=== PATIENT | female | born 1995 | race Caucasian/White ===

== ENCOUNTER 2018-07-25 14:58 | Inpatient (IN) ==
[2018-07-25] MEDS ORDERED: SODIUM CHLORIDE 0.9% 1000ML 1,000 ML IV SCH (15:30)
[2018-07-25 15:49] LABS: Basophils # (auto) 0.02 K/uL (0-0.2); Basophils % (auto) 0.2 %; Eosinophils # (auto) 0.08 K/uL (0-0.5); Eosinophils % (auto) 0.9 %; Hematocrit (blood only) 39.6 % (37-47); Hemoglobin 13.3 g/dL (12.0-16.0); Immature Granulocytes # (auto) 0.01 K/uL (0.00-0.02); Immature Granulocytes % (auto) 0.1 %; Lymphocytes # (auto) 2.14 K/uL (1.2-3.4); Mean Corpuscular Hgb Conc 33.6 g/dL (32-36); Mean Corpuscular Volume 85.7 fL (80-100); Mean Platelet Volume 11.5 fL (7.4-10.4); Monocytes # (auto) 0.92 K/uL (0.11-0.59); Monocytes % (auto) 10.3 %; Neutrophils # (auto) 5.73 K/uL (1.4-6.5); Neutrophils % (auto) 64.5 %; Platelet Count 224 K/uL (130-400); RDW Coefficient of Variation 16.4 % (11.5-14.5); RDW Standard Deviation 51.6 fL (36.4-46.3); Red Blood Count 4.62 M/uL (4.2-5.4)
[2018-07-25 16:06] LABS: Albumin Level 3.3 gm/dl (3.4-5.0); BUN Creatinine Ratio 12.3 (10-20); Calcium 8.9 mg/dl (8.5-10.1); Creatinine Clr Calc Pharmacy 121.5 ml/min; Est GFR (African American) 116.1; Est GFR (Non-African American) 100.2; Potassium 3.5 mmol/L (3.5-5.1)
[2018-07-25 16:09] LABS: Albumin Globulin Ratio 0.9 (0.9-2); Bilirubin,Total 0.3 mg/dl (0.2-1); Globulin 3.5 gm/dl (2.5-4.0); Total Protein 6.8 gm/dl (6.4-8.2)
--- NOTE | 2018-07-25 17:15 | CT Scan Report ---
CT SCAN OF THE BRAIN WITHOUT IV CONTRAST CLINICAL HISTORY: Fatigue. Seizure. COMPARISON STUDY: No priors. TECHNIQUE: Unenhanced axial CT scan of the brain is performed from the vertex to the skull base. A d ose lowering technique was utilized adhering to the principles of ALARA. CT DOSE: 537.48 mGy.cm FINDINGS: Brain parenchyma: There is a 13 mm round focus of encephalomalacia identified in the left superior ce rebellum on image #11, likely related to a remote insult. The brain parenchyma is otherwise normal in appearance. There is no hemorrhage, mass effect, or evidence of acute territorial ischemia by CT cri teria. Frazier-white matter differentiation is preserved. No extra-axial fluid collection is seen. Ventricles, sulci, cisterns: Normal in configuration. Intracranial vasculature: The visualized intracranial vasculature at the skull base is normal in appe arance. Calvarium: Unremarkable. Sinuses and mastoids: There is a 2.2 cm retention cyst in the left maxillary antrum. The remaining vi sualized paranasal sinuses are clear. The mastoid air cells are well pneumatized. Orbits: The bony orbits are grossly intact. IMPRESSION: 1. There is no acute intracranial abnormality. 2. There is a 1.3 cm round focus of encephalomalacia in the left cerebellum, likely related to a marilu te insult. Electronically signed by: Ruslan Nance M.D. 07/25/2018 5:14 PM
--- NOTE | 2018-07-25 19:04 | History & Physical Report ---
Date of Service July 25, 2018 Assessment & Plan (1) Seizure disorder: Multiple absence type seizures today. Valproic acid level is slightly supratherapeutic. ED physician has contacted [facility] neurology who is taking call. She will remain on Depakote for now. EEG ordered. Seizure precautions. Present on Admission?: Yes (2) Depression: Continue current medical management (3) DVT prophylaxis: Early ambulation History of Present Illness Chief Complaint: Recurrent absence seizure's Primary Care Provider: Laurel Bravo 23-year-old female being treated at the [facility] for the past several weeks. She has a history of seizure disorder and takes Depakote. Apparently she had several absents type seizures today accompanied by lethargy. She was sent to the ED for evaluation. Her valproic acid level is actually on the high side of normal. Head CT scan reveals a 1.3 cm e ncephalomalacia area in the left cerebellum that appears to be old. She will be admitted for further evaluation and treatment. Neurology will be consulted and EEG ordered. She will be given Ativan intravenously as needed to control any tonic clonic type seizure activity. She is stable at the time of my examination and feeling better. Although she remains somewhat lethargic, she is easily arou sable and conversant and oriented x3. Allergies Allergy/AdvReac Type Severity Reaction Status Date / Time bee venom protein (honey bee) Allergy Severe Difficulty Verified 07/25/18 15:56 Breathing PER PT blueberry Allergy Severe Difficulty Verified 07/25/18 15:56 Breathing PER PT codeine Allergy Severe Difficulty Verified 07/25/18 15:56 Breathing PER PT latex Allergy Severe Difficulty Verified 07/25/18 15:56 Breathing PER PT morphine Allergy Severe Difficulty Verified 07/25/18 15:56 Breathing PER PT sulfamethoxazole Allergy Severe Difficulty Verified 07/25/18 15:56 [From Bactrim] BreathinPER PT trimethoprim [From Bactrim] Allergy Severe Difficulty Verified 07/25/18 15:56 BreathinPER PT Bleach (Sodium Hypochlorite) Allergy Unknown NO Verified 07/25/18 15:56 REACTION ON BRAVO LIST Home Medications Home Medications Medication Instructions Recorded Confirmed Type Mylanta 30 ml PO QID PRN 07/25/18 07/25/18 History aripiprazole [Abilify] 20 mg PO HS 07/25/18 07/25/18 History kwmonxp-[id number]-niovdmsg 2 tab PO Q6H PRN 07/25/18 07/25/18 History [Excedrin Extra Strength] clonidine HCl 0.05 mg PO BID17 07/25/18 07/25/18 History divalproex 500 mg PO BID 07/25/18 07/25/18 History fluoxetine 30 mg PO QAM 07/25/18 07/25/18 History hydroxyzine HCl 50 mg PO QID PRN 07/25/18 07/25/18 History lorazepam [Ativan] 2 mg PO TID 07/25/18 07/25/18 History magnesium hydroxide [Milk of 30 ml PO DAILY PRN 07/25/18 07/25/18 History Magnesia] nicotine 1 patch TRANSDERMAL DAILY 07/25/18 07/25/18 History trazodone 100 mg PO HS 07/25/18 07/25/18 History Past Med/Surg History Medical History DVT prophylaxis Depression (Chronic) Seizure disorder (Chronic) Social History Preferred Language: Arabic Feels Safe at Home: Yes Smoking Status: Never smoker Review of Systems Review of Systems: All systems reviewed & are unremarkable except as noted in HPI & below Neurologic: + generalized weakness Lethargy Physical Exam Constitutional: + morbidly obese; no acute distress and not in distress Lethargic but easily arousable, conversant, oriented Eyes: PERRL, conjunctivae normal, anicteric sclerae ENMT: external ear and nose normal, oropharynx normal Neck: trachea midline, no thyromegaly Respiratory: normal respiratory effort, lungs clear to auscultation Cardiovascular: RRR, no murmur, no edema Gastrointestinal (Abdomen): normal bowel sounds, soft, nontender, no hepatosplenomegaly Musculoskeletal: no cyanosis or clubbing, extremities motor strength 5/5 Skin: no rashes, warm and dry Neurologic: CN's II-XI intact bilaterally and moves all extremities; no focal motor deficits Results & Data Vital Signs (Past 12 Hours) Vital Signs Temp Pulse Resp BP Pulse Ox 07/25/18 18:31 56 L 19 100 07/25/18 18:30 56 L 18 151/70 H 100 07/25/18 18:20 72 18 07/25/18 18:16 55 L 20 98 07/25/18 18:10 68 15 99 07/25/18 18:01 53 L 14 110/73 100 07/25/18 18:00 67 18 99 07/25/18 17:50 56 L 17 100 07/25/18 17:46 54 L 20 143/64 H 98 07/25/18 17:40 54 L 19 100 07/25/18 17:30 58 L 19 100 07/25/18 17:20 56 L 19 100 07/25/18 17:16 64 17 113/78 98 07/25/18 17:14 47 L 22 112/67 100 07/25/18 17:13 56 L 20 100 07/25/18 16:40 81 20 07/25/18 16:30 72 17 97 07/25/18 16:20 60 14 100 07/25/18 16:10 77 21 100 07/25/18 16:00 61 13 07/25/18 15:50 65 17 07/25/18 15:45 57 L 15 128/70 07/25/18 15:40 64 17 07/25/18 15:30 74 17 100 07/25/18 15:23 37.0 C 65 20 111/79 100 07/25/18 15:20 73 11 L 07/25/18 15:18 89 19 07/25/18 15:03 76 22 111/79 Laboratory Results 07/25/18 15:40 07/25/18 15:40
--- NOTE | 2018-07-25 19:42 | Emergency Department Note ---
Entered by Erin Hernandez acting as a scribe for History of Present Illness General Chief complaint: Seizure Stated complaint: SEIZURES Source: patient History of Present Illness Onset (ago): day(s) (today) Location: head Pain Consistency: + intermittent Maximum Pain Intensity: 9 Quality: + other (seizures) Associated symptoms: + denies other symptoms (SI, HI, changes in vision, neck pain) and + other (rib pain, being tired); no chest pain, no headaches and no shortness of breath The patient is a 23 year old female who presents to the ED with complaints of intermittent seizures occurring today. The patient states that she has a history of seizures since she was 11 and has been having multiple seizures in a day. She note that she is supposed to follow up with her neurologist, but hasn�t since moving from [place], [place]. The patient states that today she had 3 of them. She notes that she is currently at the [facility] to get her depression and anxiety medications straightened out. She notes that she was having thoughts of hurting herself and others, but no longer does now that she has been there for 3 weeks. The patient complains of rib pain and being tired. The patient denies missing her medications, headache, changes in vision, neck pain, chest pain, and shortness of breath. Home Medications Home Medications Medication Instructions Recorded Confirmed Type Mylanta 30 ml PO QID PRN 07/25/18 07/25/18 History aripiprazole [Abilify] 20 mg PO HS 07/25/18 07/25/18 History aiclzee-yrbjupaaeptuk-zqxkgeqz 2 tab PO Q6H PRN 07/25/18 07/25/18 History [Excedrin Extra Strength] clonidine HCl 0.05 mg PO BID17 07/25/18 07/25/18 History divalproex 500 mg PO BID 07/25/18 07/25/18 History fluoxetine 30 mg PO QAM 07/25/18 07/25/18 History hydroxyzine HCl 50 mg PO QID PRN 07/25/18 07/25/18 History lorazepam [Ativan] 2 mg PO TID 07/25/18 07/25/18 History magnesium hydroxide [Milk of 30 ml PO DAILY PRN 07/25/18 07/25/18 History Magnesia] nicotine 1 patch TRANSDERMAL DAILY 07/25/18 07/25/18 History trazodone 100 mg PO HS 07/25/18 07/25/18 History Allergies Allergy/AdvReac Type Severity Reaction Status Date / Time bee venom protein (honey bee) Allergy Severe Difficulty Verified 07/25/18 15:56 Breathing PER PT blueberry Allergy Severe Difficulty Verified 07/25/18 15:56 Breathing PER PT codeine Allergy Severe Difficulty Verified 07/25/18 15:56 Breathing PER PT latex Allergy Severe Difficulty Verified 07/25/18 15:56 Breathing PER PT morphine Allergy Severe Difficulty Verified 07/25/18 15:56 Breathing PER PT sulfamethoxazole Allergy Severe Difficulty Verified 07/25/18 15:56 [From Bactrim] BreathinPER PT trimethoprim [From Bactrim] Allergy Severe Difficulty Verified 07/25/18 15:56 BreathinPER PT Bleach (Sodium Hypochlorite) Allergy Unknown NO Verified 07/25/18 15:56 REACTION ON [facility] LIST Past Med/Surg History Medical History DVT prophylaxis Depression (Chronic) Seizure disorder (Chronic) Family History Other No significant family history Social History Preferred Language: Georgian marital status: Single Current Living Situation: Alone current occupational status: unemployed Feels Safe at Home: Yes Smoking Status: Never smoker Review of Systems See HPI for pertinent positives & negatives. and A total of 10 systems reviewed and were otherwise negative Physical Exam Vital Signs Vital Signs - 24 hr 07/25/18 15:03 07/25/18 15:18 07/25/18 15:20 Temperature Temperature Source Sepsis Recent Fever Within 48 Hours Sepsis New/Unexplained Change in Mental Status Sepsis Action Taken by Nursing Pulse Rate 76 89 73 Pulse Rate from SpO2 Sensor Pulse Rhythm Pulse Strength Respiratory Rate 22 19 11 L Respiratory Effort / Characteristics Respiratory Depth Respiratory Pattern Blood Pressure 111/79 Blood Pressure Mean 89 Blood Pressure Position Pulse Oximetry Oxygen Delivery Method 07/25/18 15:23 07/25/18 15:30 07/25/18 15:40 Temperature 37.0 C Temperature Source Oral Sepsis Recent Fever Within 48 Hours No Sepsis New/Unexplained Change in Mental Status No Sepsis Action Taken by Nursing No Action Required Pulse Rate 65 74 64 Pulse Rate from SpO2 Sensor 75 Pulse Rhythm Regular Pulse Strength Normal Respiratory Rate 20 17 17 Respiratory Effort / Characteristics Non-Labored Spontaneous Respiratory Depth Normal Respiratory Pattern Regular Blood Pressure 111/79 Blood Pressure Mean 89 Blood Pressure Position Sitting Pulse Oximetry 100 100 Oxygen Delivery Method Room Air 07/25/18 15:45 07/25/18 15:50 07/25/18 16:00 Temperature Temperature Source Sepsis Recent Fever Within 48 Hours Sepsis New/Unexplained Change in Mental Status Sepsis Action Taken by Nursing Pulse Rate 57 L 65 61 Pulse Rate from SpO2 Sensor Pulse Rhythm Pulse Strength Respiratory Rate 15 17 13 Respiratory Effort / Characteristics Respiratory Depth Respiratory Pattern Blood Pressure 128/70 Blood Pressure Mean 89 Blood Pressure Position Pulse Oximetry Oxygen Delivery Method 07/25/18 16:10 07/25/18 16:20 07/25/18 16:30 Temperature Temperature Source Sepsis Recent Fever Within 48 Hours Sepsis New/Unexplained Change in Mental Status Sepsis Action Taken by Nursing Pulse Rate 77 60 72 Pulse Rate from SpO2 Sensor 79 61 77 Pulse Rhythm Pulse Strength Respiratory Rate 21 14 17 Respiratory Effort / Characteristics Respiratory Depth Respiratory Pattern Blood Pressure Blood Pressure Mean Blood Pressure Position Pulse Oximetry 100 100 97 Oxygen Delivery Method 07/25/18 16:40 07/25/18 17:13 07/25/18 17:14 Temperature Temperature Source Sepsis Recent Fever Within 48 Hours Sepsis New/Unexplained Change in Mental Status Sepsis Action Taken by Nursing Pulse Rate 81 56 L 47 L Pulse Rate from SpO2 Sensor 63 63 49 L Pulse Rhythm Pulse Strength Respiratory Rate 20 20 22 Respiratory Effort / Characteristics Respiratory Depth Respiratory Pattern Blood Pressure 112/67 Blood Pressure Mean 82 Blood Pressure Position Pulse Oximetry 100 100 Oxygen Delivery Method 07/25/18 17:16 07/25/18 17:20 07/25/18 17:30 Temperature Temperature Source Sepsis Recent Fever Within 48 Hours Sepsis New/Unexplained Change in Mental Status Sepsis Action Taken by Nursing Pulse Rate 64 56 L 58 L Pulse Rate from SpO2 Sensor 67 57 L 59 L Pulse Rhythm Pulse Strength Respiratory Rate 17 19 19 Respiratory Effort / Characteristics Respiratory Depth Respiratory Pattern Blood Pressure 113/78 Blood Pressure Mean 89 Blood Pressure Position Pulse Oximetry 98 100 100 Oxygen Delivery Method 07/25/18 17:40 07/25/18 17:46 07/25/18 17:50 Temperature Temperature Source Sepsis Recent Fever Within 48 Hours Sepsis New/Unexplained Change in Mental Status Sepsis Action Taken by Nursing Pulse Rate 54 L 54 L 56 L Pulse Rate from SpO2 Sensor 54 L 56 L 56 L Pulse Rhythm Pulse Strength Respiratory Rate 19 20 17 Respiratory Effort / Characteristics Respiratory Depth Respiratory Pattern Blood Pressure 143/64 H Blood Pressure Mean 90 Blood Pressure Position Pulse Oximetry 100 98 100 Oxygen Delivery Method 07/25/18 18:00 07/25/18 18:01 07/25/18 18:10 Temperature Temperature Source Sepsis Recent Fever Within 48 Hours Sepsis New/Unexplained Change in Mental Status Sepsis Action Taken by Nursing Pulse Rate 67 53 L 68 Pulse Rate from SpO2 Sensor 68 54 L 71 Pulse Rhythm Pulse Strength Respiratory Rate 18 14 15 Respiratory Effort / Characteristics Respiratory Depth Respiratory Pattern Blood Pressure 110/73 Blood Pressure Mean 85 Blood Pressure Position Pulse Oximetry 99 100 99 Oxygen Delivery Method 07/25/18 18:16 07/25/18 18:20 07/25/18 18:30 Temperature Temperature Source Sepsis Recent Fever Within 48 Hours Sepsis New/Unexplained Change in Mental Status Sepsis Action Taken by Nursing Pulse Rate 55 L 72 56 L Pulse Rate from SpO2 Sensor 53 L 56 L 55 L Pulse Rhythm Pulse Strength Respiratory Rate 20 18 18 Respiratory Effort / Characteristics Respiratory Depth Respiratory Pattern Blood Pressure 151/70 H Blood Pressure Mean 79 97 Blood Pressure Position Pulse Oximetry 98 100 Oxygen Delivery Method 07/25/18 18:31 07/25/18 18:46 07/25/18 19:00 Temperature Temperature Source Sepsis Recent Fever Within 48 Hours Sepsis New/Unexplained Change in Mental Status Sepsis Action Taken by Nursing Pulse Rate 56 L 70 68 Pulse Rate from SpO2 Sensor 57 L Pulse Rhythm Pulse Strength Respiratory Rate 19 17 17 Respiratory Effort / Characteristics Respiratory Depth Respiratory Pattern Blood Pressure 118/76 Blood Pressure Mean 90 Blood Pressure Position Pulse Oximetry 100 98 Oxygen Delivery Method 07/25/18 19:01 07/25/18 19:28 Temperature Temperature Source Sepsis Recent Fever Within 48 Hours Sepsis New/Unexplained Change in Mental Status Sepsis Action Taken by Nursing Pulse Rate 68 63 Pulse Rate from SpO2 Sensor Pulse Rhythm Pulse Strength Respiratory Rate 17 18 Respiratory Effort / Characteristics Respiratory Depth Respiratory Pattern Blood Pressure 90/65 L 90/63 L Blood Pressure Mean 73 Blood Pressure Position Pulse Oximetry 99 99 Oxygen Delivery Method Room Air GENERAL: disheveled, lying in bed, slow to respond, no acute distress, nontoxic EYE EXAM: normal conjunctiva OROPHARYNX: no exudate, no erythema, lips, buccal mucosa, and tongue normal and mucous membranes are moist NECK: supple, no nuchal rigidity, no adenopathy, non-tender LUNGS: Clear to auscultation. Normal chest wall mechanics HEART: no murmurs, S1 normal and S2 normal ABDOMEN: abdomen soft, non-tender, normo-active bowel sounds, no masses, no rebound or guarding. BACK: Back is symmetrical on inspection and there is no deformity, no midline tenderness, no CVA tenderness. SKIN: no rashes and no bruising UPPER EXTREMITIES: upper extremities are grossly normal. LOWER EXTREMITIES: No pitting edema. NEURO EXAM: Normal sensorium, cranial nerves II-XII intact, normal speech, no weakness of arms, no weakness of legs. No drift. Finger to nose intact. Gross sensation intact. Course ED COURSE: Vital signs were reviewed and showed hypotension. The patients medical record was reviewed The above diagnostic studies were performed and reviewed. ED treatments and interventions as stated above. 1507: The patient was evaluated in room C2B. A complete history and physical examination was performed. 1742: I discussed the patient's case with Dr. Baker- Neurologist. He recommends brining her in and not loading her with medication. 1746: Upon reevaluation, the patient is resting comfortably. I discussed my findings with the patient and she understands and agrees with the treatment plan. Based on the patients age, coexisting illnesses, exam and lab findings the decision to treat as an inpatient was made. The patient remained stable while under my care. The patient will be evaluated for further management. 1754: I discussed the patient's case with a nurse at the [facility]. They informed me that she has a history of absent seizures and had several last night. They report that they gave her Ativan, but she had an additional 2 episodes this morning. They report that she also had a physical decline and needed help moving today so they sent her over. 1830: I discussed the patient's case with Dr. Roe [facility] Hospitalist. They will evaluate the patient for further management. Consultations Consultation #1: I discussed the patient's case with Dr. Roe [facility] Hospitalist. They will evaluate the patient for further management. Time: 18:30 Administered Medications Discontinued Medications Sodium Chloride (Nss 1000ml) 1,000 mls @ 999 mls/hr IV .Q1H1M [facility] Stop: 07/25/18 16:30 Last Infusion: 07/25/18 19:17 Dose: 0 mls/hr Documented by: [id number] Admin: 07/25/18 15:49 Dose: 999 mls/hr Documented by: [id number] Medical Decision Making Differential Diagnosis Differential diagnosis includes etiologies such as infection, hypoglycemia, electrolyte abnormalities, cardiac sources, intracerebral event, trauma, toxicologic, neurologic, as well as others were entertained. Medical Records Attestation: I reviewed the patient's medical records. Home Medications Current Medication List: was personally reviewed by me Laboratory Data Attestation: I reviewed the patient's lab results. Result diagrams: 07/25/18 15:40 07/25/18 15:40 Lab Results 07/25/18 07/25/18 07/25/18 Range/Units 15:40 15:40 15:40 WBC 8.90 (4.8-10.8) K/uL RBC 4.62 (4.2-5.4) M/uL Hgb 13.3 (12.0-16.0) g/dL Hct 39.6 (37-47) % MCV 85.7 (80-100) fL MCH 28.8 (25-34) pg MCHC 33.6 (32-36) g/dL RDW Std Deviation 51.6 H (36.4-46.3) fL RDW Coeff of Ania 16.4 H (11.5-14.5) % Plt Count 224 (130-400) K/uL MPV 11.5 H (7.4-10.4) fL Immature Gran % (Auto) 0.1 % Neut % (Auto) 64.5 % Lymph % (Auto) 24.0 % [place]affee % (Auto) 10.3 % Eos % (Auto) 0.9 % Baso % (Auto) 0.2 % Immature Gran # (Auto) 0.01 (0.00-0.02) K/uL Neut # (Auto) 5.73 (1.4-6.5) K/uL Lymph # (Auto) 2.14 (1.2-3.4) K/uL [place]affee # (Auto) 0.92 H (0.11-0.59) K/uL Eos # (Auto) 0.08 (0-0.5) K/uL Baso # (Auto) 0.02 (0-0.2) K/uL Sodium 144 (136-145) mmol/L Potassium 3.5 (3.5-5.1) mmol/L Chloride 108 H (98-107) mmol/L Carbon Dioxide 30 (21-32) mmol/L Anion Gap 6.0 (3-11) BUN 10 (7-18) mg/dl Creatinine 0.82 (0.6-1.2) mg/dl Est Cr Clr Drug Dosing 121.5 ml/min Est GFR ( Amer) 116.1 Est GFR (Non-Af Amer) 100.2 BUN/Creatinine Ratio 12.3 (10-20) Glucose 87 (70-99) mg/dl Calcium 8.9 (8.5-10.1) mg/dl Total Bilirubin 0.3 (0.2-1) mg/dl AST 19 (15-37) U/L ALT 23 (12-78) U/L Alkaline Phosphatase 52 (45-117) U/L Total Protein 6.8 (6.4-8.2) gm/dl Albumin 3.3 L (3.4-5.0) gm/dl Globulin 3.5 (2.5-4.0) gm/dl Albumin/Globulin Ratio 0.9 (0.9-2) POC Ur Test (NEG) Valproic Acid 116 H (50-100) mcg/ml 07/25/18 Range/Units Unknown WBC (4.8-10.8) K/uL RBC (4.2-5.4) M/uL Hgb (12.0-16.0) g/dL Hct (37-47) % MCV (80-100) fL MCH (25-34) pg MCHC (32-36) g/dL RDW Std Deviation (36.4-46.3) fL RDW Coeff of Ania (11.5-14.5) % Plt Count (130-400) K/uL MPV (7.4-10.4) fL Immature Gran % (Auto) % Neut % (Auto) % Lymph % (Auto) % [place] % (Auto) % Eos % (Auto) % Baso % (Auto) % Immature Gran # (Auto) (0.00-0.02) K/uL Neut # (Auto) (1.4-6.5) K/uL Lymph # (Auto) (1.2-3.4) K/uL [place] # (Auto) (0.11-0.59) K/uL Eos # (Auto) (0-0.5) K/uL Baso # (Auto) (0-0.2) K/uL Sodium (136-145) mmol/L Potassium (3.5-5.1) mmol/L Chloride (98-107) mmol/L Carbon Dioxide (21-32) mmol/L Anion Gap (3-11) BUN (7-18) mg/dl Creatinine (0.6-1.2) mg/dl Est Cr Clr Drug Dosing ml/min Est GFR ( Amer) Est GFR (Non-Af Amer) BUN/Creatinine Ratio (10-20) Glucose (70-99) mg/dl Calcium (8.5-10.1) mg/dl Total Bilirubin (0.2-1) mg/dl AST (15-37) U/L ALT (12-78) U/L Alkaline Phosphatase (45-117) U/L Total Protein (6.4-8.2) gm/dl Albumin (3.4-5.0) gm/dl Globulin (2.5-4.0) gm/dl Albumin/Globulin Ratio (0.9-2) POC Ur Test NEG (NEG) Valproic Acid (50-100) mcg/ml Imaging Data Radiologist's Impression: Radiology results as stated below per my review and the radiologist's interpretation: CT SCAN OF THE BRAIN WITHOUT IV CONTRAST CLINICAL HISTORY: Fatigue. Seizure. COMPARISON STUDY: No priors. TECHNIQUE: Unenhanced axial CT scan of the brain is performed from the vertex to the skull base. A dose lowering technique was utilized adhering to the principles of ALARA. CT DOSE: 537.48 mGy.cm FINDINGS: Brain parenchyma: There is a 13 mm round focus of encephalomalacia identified in the left superior cerebellum on image #11, likely related to a remote insult. The brain parenchyma is otherwise normal in appearance. There is no hemorrhage, mass effect, or evidence of acute territorial ischemia by CT criteria. Frazier- white matter differentiation is preserved. No extra-axial fluid collection is seen. Ventricles, sulci, cisterns: Normal in configuration. Intracranial vasculature: The visualized intracranial vasculature at the skull base is normal in appearance. Calvarium: Unremarkable. Sinuses and mastoids: There is a 2.2 cm retention cyst in the left maxillary antrum. The remaining visualized paranasal sinuses are clear. The mastoid air cells are well pneumatized. Orbits: The bony orbits are grossly intact. IMPRESSION: 1. There is no acute intracranial abnormality. 2. There is a 1.3 cm round focus of encephalomalacia in the left cerebellum, likely related to a remote insult. Electronically signed by: Ruslan Nance M.D. 07/25/2018 5:14 PM ECG Data Attestation: I personally reviewed and interpreted this ECG as follows: Indication: other (seizure) Rate (beats per minute): 60 Rhythm: sinus bradycardia Findings: + other (normal axis); no PVC Blood Pressure Blood Pressure Findings: Low blood pressure Blood Pressure Disposition: further management by hospitalist MDM Narrative Patient is a 23-year-old female who presents the ER from the [facility] for 3 seizures in the past 24 hours. Patient has a history of absent seizures. She notes she gets about 1 a week but is otherwise fairly well controlled. She does take valproic acid. Mental state that she had 3 in the past 24 hours. Labs were obtained showed no significant leukocytosis or anemia. BMP was unremarkable. LFTs bilirubin was unremarkable. was negative. Valproic acid was slightly elevated at 116. 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 Discussed with unassigned neurology as she follows with a neurologist out of [facility]. Were in agreement with observation but holding antiepileptics at this time. Discussed with the hospitalist and patient will be observed overnight. She has no other complaints at this time. She is at her baseline but very tired. Impression & Plan Recurrent seizures Discharge Plan Visit Data Chief Complaint: Seizure Stated Complaint: SEIZURES ED Provider: Evan Frazier Discharge Problem: Recurrent seizures Patient Disposition: Being Evaluated by Hospitalist Discharge Instructions Interventions: ED Discharge Assessment Last Done: 07/25/18 19:28 Forms Stand Alone Forms: My [facility] Prescriptions Prescriptions: No Action clonidine HCl 0.1 mg Tablet 0.05 mg PO BID17 RF: 0 nicotine 14 mg/24 hr Patch 24 Hour 1 patch TRANSDERMAL DAILY RF: 0 fluoxetine 10 mg Tablet 30 mg PO QAM RF: 0 hydroxyzine HCl 50 mg Tablet 50 mg PO QID PRN (Reason: Anxiety) RF: 0 divalproex 500 mg Tablet,Delayed Release (Dr/Ec) 500 mg PO BID RF: 0 magnesium hydroxide [Milk of Magnesia] 400 mg/5 mL Suspension 30 ml PO DAILY PRN (Reason: Constipation) RF: 0 trazodone 100 mg Tablet 100 mg PO HS RF: 0 lorazepam [Ativan] 2 mg Tablet 2 mg PO TID RF: 0 Excedrin Extra Strength 250-250-65 mg Tablet 2 tab PO Q6H PRN (Reason: Headache) RF: 0 aripiprazole [Abilify] 20 mg Tablet 20 mg PO HS RF: 0 Mylanta 30 ml PO QID PRN (Reason: GASTRIC DISTRESS) RF: 0 Referrals Referrals: [facility] [Primary Care Provider] - The scribe's documentation has been prepared under my direction and personally reviewed by me in its entirety. I confirm that the note above accurately reflects all work, treatment, procedures, and medical decision making performed by me.
[2018-07-25] MEDS ORDERED: ALUMINUM/MAGNESIUM SUSP 30 ML UDC PO PRN (19:46)
[2018-07-25] MEDS ORDERED: MAGNESIUM HYDROXIDE SUSP 30 ML UDC PO PRN (19:46)
[2018-07-25] MEDS ORDERED: MYLANTA PO PRN (19:46)
[2018-07-25] MEDS ORDERED: ONDANSETRON INJ 2 MG/ML 2 ML VIAL IV PRN (19:46)
[2018-07-25] MEDS: ARIPiprazole 10 MG TAB PO SCH (20:43)
[2018-07-25] MEDS: TRAZODONE HCL 100 MG TAB PO SCH (20:44)
[2018-07-25] MEDS: DIVALPROEX DELAY RELEASE 500 MG TAB PO SCH (20:44)
[2018-07-26] MEDS: FLUOXETINE HCL 10 MG CAP PO SCH (07:54)
[2018-07-26] MEDS: DIVALPROEX DELAY RELEASE 500 MG TAB PO SCH ×2 (07:55→21:55)
[2018-07-26] MEDS: cloNIDine HCl 0.1 MG TAB PO SCH ×2 (07:55→17:11)
[2018-07-26] MEDS: NICOTINE 14 MG/24 HR PATCH TD SCH (07:55)
[2018-07-26] MEDS: ACETAMINOPHEN 325 MG TAB PO PRN (08:02)
[2018-07-26 12:16] LABS: Base Excess VBG 1.4 mEq/L; Oxygen Saturation VBG 93.3 %; pH VBG 7.45 (7.36-7.41)
[2018-07-26] MEDS ORDERED: LACTULOSE SYRUP 30 GM/45 ML UDP PO STA (13:10)
--- NOTE | 2018-07-26 13:33 | Procedure Note ---
EEG Procedure Note Date of Service July 26, 2018 Start / End Times Start Time: 0830 End Time: 0900 Referring Physician Adan Kinsey MD History Known seizure disorder with 3 recent "breakthrough" seizures occurring at local psychiatric facility with high therapeutic level of [place] Medication List Home Medications Medication Instructions Recorded Confirmed Type Mylanta 30 ml PO QID PRN 07/25/18 07/25/18 History aripiprazole [Abilify] 20 mg PO HS 07/25/18 07/25/18 History racdlvi-tuvmklysqvofj-vltjcbmn 2 tab PO Q6H PRN 07/25/18 07/25/18 History [Excedrin Extra Strength] clonidine HCl 0.05 mg PO BID17 07/25/18 07/25/18 History divalproex 500 mg PO BID 07/25/18 07/25/18 History fluoxetine 30 mg PO QAM 07/25/18 07/25/18 History hydroxyzine HCl 50 mg PO QID PRN 07/25/18 07/25/18 History lorazepam [Ativan] 2 mg PO TID 07/25/18 07/25/18 History magnesium hydroxide [Milk of 30 ml PO DAILY PRN 07/25/18 07/25/18 History Magnesia] nicotine 1 patch TRANSDERMAL DAILY 07/25/18 07/25/18 History trazodone 100 mg PO HS 07/25/18 07/25/18 History Inpatient Medication List Acetaminophen (Tylenol) 650 mg PO Q4H PRN PRN Reason: Pain or Fever Stop: 08/24/18 19:45 Last Admin: 07/26/18 08:02 Dose: 650 mg Documented by: [id number] Aripiprazole (Abilify) 20 mg PO [facility] Stop: 08/24/18 20:59 Last Admin: 07/25/18 20:43 Dose: 20 mg Documented by: [id number] Clonidine HCl (Catapres) 0.05 mg PO BID17 [facility] Stop: 08/25/18 08:59 Last Admin: 07/26/18 07:55 Dose: 0.05 mg Documented by: [id number] Divalproex Sodium (Depakote Delay Release) 500 mg PO BID [facility] Stop: 08/24/18 20:59 Last Admin: 07/26/18 07:55 Dose: 500 mg Documented by: [id number] Admin: 07/25/18 20:44 Dose: 500 mg Documented by: [id number] Fluoxetine HCl (Prozac) 30 mg PO QAM [facility] Stop: 08/25/18 08:59 Last Admin: 07/26/18 07:54 Dose: 30 mg Documented by: [id number] Miscellaneous (Remove Nicoderm Patch) 1 ea N/A HS [facility] Stop: 08/24/18 20:59 Last Admin: 07/25/18 20:44 Dose: Not Given Documented by: [id number] Nicotine (Nicoderm Cq) 14 mg TD DAILY [facility] Stop: 08/25/18 08:59 Last Admin: 07/26/18 07:55 Dose: 14 mg Documented by: [id number] Trazodone HCl (Desyrel) 100 mg PO HS [facility] Stop: 08/24/18 20:59 Last Admin: 07/25/18 20:44 Dose: 100 mg Documented by: [id number] Discontinued Medications Sodium Chloride (Nss 1000ml) 1,000 mls @ 999 mls/hr IV .Q1H1M [facility] Stop: 07/25/18 16:30 Last Infusion: 07/25/18 19:17 Dose: 0 mls/hr Documented by: [id number] Admin: 07/25/18 15:49 Dose: 999 mls/hr Documented by: [id number] Description This is a 21 electrode EEG with a single channel dedicated to limited EKG. The electrodes were placed in accordance with the International 10-20 system. This EEG is done as a bedside recording and is of good technical quality allowing for some muscle movement artifacts. Photic stimulation is performed. Drowsiness and light sleep are not recorded During wakefulness there is evidence for normal background rhythm in the alpha range of up to 9 Hz maximum frequency of up to 30 �V of maximal amplitude theta activity is seen centrally and in a symmetrical fashion beta activity is seen bifrontally There is an F7 electrode artifact throughout the recording which does not interfere with interpretation Photic stimulation provokes a modest driving response No time during the waking recording is evidence for potentially epileptogenic activity in the form of polyspike and spike-wave burst, focal sharp waves or focal spikes Interpretation This is a normal EEG during wakefulness revealing no evidence for focal or generalized encephalopathy and no evidence for potentially epileptogenic activity Clinical Correlation This is a normal EEG during wakefulness and indicates no evidence for significant focal or generalized encephalopathy or presence of potentially epil eptogenic discharges. The absence of the latter does not exclude the diagnosis of a seizure disorder Clinical correlation is required Jose Guadalupe Baker MD
[2018-07-26] MEDS: NYSTATIN POWDER 15GM BTL EXT SCH ×3 (13:52→21:02)
--- NOTE | 2018-07-26 15:44 | Neurology Consultation ---
Date of Consultation July 26, 2018 Assessment & Plan (1) Recurrent seizures: 1. continue Depakote 500 mg BID which she has been taking for years 2. agree with lactulose for elevated ammonia level which is caused by the Depakote 3. she will need to establish care in [facility] with her neurologist for change to another antiseizure medication 4. 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 repeat level in the am 6. EEG with no seizure activity follow up with PCP and neurology as outpatient in [facility] Supervising Physician Co-Signing Physician Notes I have seen and discussed above patient with Dr Jose Guadalupe Baker, neurology I seen Cherise today, reviewed her history, discussed her case with Aurelia Garcia and examined her. Number is 23 has had psychiatric issues of undetermined type since childhood and a seizure disorder since adolescence we do not really have adequate records regarding the nature of her seizures but she tells me that her EEGs have "always been normal" and that the only medication she is ever taken has been Depakote. Patient epilepsy unit monitoring states that her seizure frequency is about once a month and that the events are often very brief duration partial type of affairs and that she is never had 3 events in a row like she apparently had yesterday at the [facility] Her Depakote level was elevated at 116 which is usually in light of her dose and she did have an elevated ammonia which I suspect is been a chronic issue with her but one that may never have been monitored. Currently her EEG is normal her exam is what I seem to be baseline and at this point I am unwilling to add more anticonvulsants to this woman's regimen and go to recommend that she be discharged and return to the care of her psychiatrist and neurologist in the [facility] We have restarted the Depakote as I see no urgent need to stop it without a game plan about an alternative anticonvulsant and we are certainly not cannot outline such a plan here as we are not going to provide long-term care We are suggesting another Depakote level be done just to be sure that some of her elevated levels might not of been due to iatrogenic over compliance at the [facility] and would suggest that she be discharged on lactulose and that her medical records to be transferred to her providers in the [facility] for their review I remain suspicious that some of the events yesterday were nonepileptic and remains suspicious that some of the events she is described over the years are nonepileptic but again not knowing her case is can only be conjectural If she is still in the hospital tomorrow we will make another visit but for now I would strongly suggest she be discharged back to the care of her mother and the physicians in [place] care for her with the only medication addition being the lactulose to control her hyperammonemia Jose Guadalupe Baker MD History of Present Illness Reason for Consultation: seizure exacerbation know seizure disorder Requesting Physician: Sixto Rosenbaum Attending Physician: Sixto Rosenbaum History of Present Illness Cherise is a 23 year old female being treated at the [facility] for the past several weeks. She has a history of seizure disorder and takes Depakote. She states she had several absent seizures accompanied by lethargy. Her valproic acid level is actually on the high side of normal. Head CT scan reveals a 1.3 cm encephalomalacia area in the left cerebellum that appears to be old. She is currently lethargic, she is easily arousable and conversant and oriented x3. She state she started having seizure in her teens and has never been on anything other than Depakote 500 mg BID. she is from [facility] and has a ride back home once she is cleared. She states she was outside smoking a cigarette and has several episode of staring. She is on numerous psychiatric medications and at the [facility] because of depression but states she is not suicidal. denies CP, SOB, abdominal pain, one sided weakness numbness tingling, N, V, fever chills night sweats, denies biting tongue or incontinence. Allergies Allergy/AdvReac Type Severity Reaction Status Date / Time bee venom protein (honey bee) Allergy Severe Difficulty Verified 07/25/18 15:56 Breathing PER PT blueberry Allergy Severe Difficulty Verified 07/25/18 15:56 Breathing PER PT codeine Allergy Severe Difficulty Verified 07/25/18 15:56 Breathing PER PT latex Allergy Severe Difficulty Verified 07/25/18 15:56 Breathing PER PT morphine Allergy Severe Difficulty Verified 07/25/18 15:56 Breathing PER PT sulfamethoxazole Allergy Severe Difficulty Verified 07/25/18 15:56 [From Bactrim] BreathinPER PT trimethoprim [From Bactrim] Allergy Severe Difficulty Verified 07/25/18 15:56 BreathinPER PT Bleach (Sodium Hypochlorite) Allergy Unknown NO Verified 07/25/18 15:56 REACTION ON BRAVO LIST Home Medications Home Medications Medication Instructions Recorded Confirmed Type Mylanta 30 ml PO QID PRN 07/25/18 07/25/18 History aripiprazole [Abilify] 20 mg PO HS 07/25/18 07/25/18 History abkvaab-yfdtcmgpscykw-dymsqxbh 2 tab PO Q6H PRN 07/25/18 07/25/18 History [Excedrin Extra Strength] clonidine HCl 0.05 mg PO BID17 07/25/18 07/25/18 History divalproex 500 mg PO BID 07/25/18 07/25/18 History fluoxetine 30 mg PO QAM 07/25/18 07/25/18 History hydroxyzine HCl 50 mg PO QID PRN 07/25/18 07/25/18 History lorazepam [Ativan] 2 mg PO TID 07/25/18 07/25/18 History magnesium hydroxide [Milk of 30 ml PO DAILY PRN 07/25/18 07/25/18 History Magnesia] nicotine 1 patch TRANSDERMAL DAILY 07/25/18 07/25/18 History trazodone 100 mg PO HS 07/25/18 07/25/18 History Patient History Medical History DVT prophylaxis Depression (Chronic) Seizure disorder (Chronic) Family History Other No significant family history Social History Preferred Language: Kazakh Communication Ability: Effective 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 Beliefs That Will Affect Care: None marital status: Single Current Living Situation: Family and Significant Other current occupational status: unemployed Other Information That Helps Us Care for You: No Feels Safe at Home: Yes Safety Concerns: Feels Safe At This Time Smoking Status: Current every day smoker Tobacco Type: cigarettes Cigarettes Per Day: 2-3 cigarettes/day Do You Dip or Chew Tobacco: No Second Hand Exposure: Yes Tobacco Cessation Education Requested by Patient: No Hx Alcohol Use: No Hx Substance Use: No Physical Exam Physical Exam: Physical Exam: Constitutional: appearance over nourished, healthy lethargy but awakes and interacts easily Ears, Nose, Mouth and Throat: mucous membranes moist, no injection and skin normal, eyes normal Cardiovascular: normal S-1 and S-2 and regular rate and rhythm Respiratory: clear to auscultation (CTA) and no rales, ronchi or wheeze Musculoskeletal: no peripheral edema and good distal pulses Skin: no stigmata of neurocutaneous disease noted and normal and intact Eyes: extraocular muscles intact (EOMI) and pupils equal, round and reactive to light (PERRL) NEUROLOGIC EXAMINATION: Mental status: Alert and interactive Oriented know she is in the hospital in [place] Oriented to person Speech fluent with no evidence of aphasia Cranial Nerves smile eye brow raise symmetric Reflexes: Deep tendon reflexes were symmetrical and graded 2/5. Sensory: no deficit to light or cool touch Coordination: finger to nose with no bipass, heel to abrams intact Gait/Stance: Posture lying in bed Motor: Negative for pronator drift of out stretched arms with eyes closed. Strength: biceps triceps hand soft work wrapper examiner 5/5 hip flex plantar flex ext 5/5 bilaterally Results & Data Vital Signs (Past 12 Hours) Vital Signs Temp Pulse Pulse Resp BP BP Pulse Ox 07/26/18 13:35 91/62 L 07/26/18 12:27 67 88/60 L 07/26/18 12:14 37.5 C 67 97 07/26/18 10:07 59 L 07/26/18 07:12 36.5 C 59 L 18 111/78 100 Laboratory Results Abnormal lab results 07/25/18 07/25/18 07/25/18 Range/Units 15:40 15:40 15:40 RDW Std Deviation 51.6 H (36.4-46.3) fL RDW Coeff of Ania 16.4 H (11.5-14.5) % MPV 11.5 H (7.4-10.4) fL [place] # (Auto) 0.92 H (0.11-0.59) K/uL VBG pH (7.36-7.41) VBG pCO2 (38-50) mmHg Chloride 108 H (98-107) mmol/L Ammonia (11-32) umol/L Albumin 3.3 L (3.4-5.0) gm/dl Valproic Acid 116 H (50-100) mcg/ml 07/26/18 07/26/18 Range/Units 12:00 12:00 RDW Std Deviation (36.4-46.3) fL RDW Coeff of Ania (11.5-14.5) % MPV (7.4-10.4) fL [place] # (Auto) (0.11-0.59) K/uL VBG pH 7.45 H (7.36-7.41) VBG pCO2 37 L (38-50) mmHg Chloride (98-107) mmol/L Ammonia 119.0 H (11-32) umol/L Albumin (3.4-5.0) gm/dl Valproic Acid (50-100) mcg/ml Diagnostic Findings CT head-. There is no acute intracranial abnormality. There is a 1.3 cm round focus of encephalomalacia in the left cerebellum, likely related to a remote insult. EEG -no seizure spikes
[2018-07-26] MEDS ORDERED: LACTULOSE SYRUP 10 GM/15 ML BTL 473 ML PO STA (19:37)
--- NOTE | 2018-07-26 20:27 | Hospitalist Progress Note ---
Date of Service July 26, 2018 Assessment & Plan (1) Seizure disorder: report of frequent seizures at the [facility]. no seizures since admission. EEG w/o focal seizure. 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 depakote level >100 -- I had initially held the depakote but neurology recommended resuming it. thus continue depakote. repeat level in am. will need to be changed to another anti-epileptic as outpatient due to significant hyperammonemia. this will be deferred to her outpatient neurologist in [place]. Present on Admission?: Yes (2) Hepatic encephalopathy: Elevated ammonia level likely due to depakote use. No liver disease. Lactulose 30gm x 1 given early today, then another dose of 15gm tonight. Repeat exams and repeat level AM. Present on Admission?: Yes (3) Depression: continue all prior psych meds. once medically cleared can return to the [facility]. Present on Admission?: Yes (4) Altered mental state: Initially thought 2nd to post-ictal state from seizures but hepatic encephalopathy explains most of current state. Rx w/ lactulose. Follow. TSH, VBG, etc otherwise negative. Check a tox screen - r/o illicit substances. Check u/a to ensure no UTI. 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 defer MRI to neurology if necessary. Present on Admission?: Yes (7) Candidal intertrigo: nystatin powder TID (8) DVT prophylaxis: if patient stays beyond tomorrow then start lovenox Subjective patient very sleepy during the visit. even when she opens her eyes she quickly falls back asleep. 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 she is from [facility]. cannot tell me why she is at the [facility]. staff report lethargy but no seizures. tele normal overnight. Review of Systems Review of Systems: Unobtainable due to cognitive status Physical Exam Constitutional: + obese and + altered mental status; no acute distress lethargic ENMT: external ear and nose normal, oropharynx normal Respiratory: normal respiratory effort, lungs clear to auscultation Cardiovascular: Rate/Rhythm: regular rate and regular rhythm Heart Sounds: normal S1 and normal S2; no murmur Vessels: posterior tibial pulses present and dorsalis pedis pulses present; no JVD Extremities: no edema Gastrointestinal (Abdomen): normal bowel sounds, soft, nontender, no hepatosplenomegaly Skin: severe candidal rash under breasts and on chest/abd wall (chaperoned by nurse) Neurologic: Motor/Sensory: + asterixis Psychiatric: Orientation: + not alert (lethargic) Results & Data Vital Signs (Past 12 Hours) Vital Signs Temp Pulse Pulse Resp BP BP Pulse Ox 07/26/18 19:24 36.8 C 171 H 16 94/58 L 97 07/26/18 16:26 66 07/26/18 15:43 36.5 C 60 18 111/74 97 07/26/18 13:35 91/62 L 07/26/18 12:27 67 88/60 L 07/26/18 12:14 37.5 C 67 97 07/26/18 10:07 59 L Laboratory Results Laboratory Results - last 24 hr 07/26/18 07/26/18 07/26/18 12:00 12:00 12:00 VBG pH VBG pCO2 VBG pO2 VBG HCO3 VBG O2 Saturation VBG Base Excess Barometric Pressure Ammonia 119.0 H Vitamin B12 718 TSH 2.050 07/26/18 12:00 VBG pH 7.45 H VBG pCO2 37 L VBG pO2 70 VBG HCO3 25 VBG O2 Saturation 93.3 VBG Base Excess 1.4 Barometric Pressure 732.2 Ammonia Vitamin B12 TSH (1) Depression Depression Type: unspecified Qualified Code(s): F32.9 - Major depressive disorder, single episode, unspecified (2) Altered mental state Altered mental status type: somnolence Qualified Code(s): R40.0 - Somnolence
[2018-07-26] MEDS: TRAZODONE HCL 100 MG TAB PO SCH (21:54)
[2018-07-26] MEDS: ARIPiprazole 10 MG TAB PO SCH (21:55)
[2018-07-26 22:13] LABS: Appearance Urine Cloudy (Clear); Bacteria Urine Automated Negative (Negative); Bilirubin Urine Negative (Negative); Blood Urine 3+ (Negative); Color Urine Yellow; Epithelial Cell Urine Auto >30 /lpf (0-5); Glucose Urine UA Negative (Negative); Ketones Urine 1+ (Negative); Leukocyte Esterase Urine Negative (Negative); Nitrite Urine Negative (Negative); Protein Urine Negative (Negative); Specific Gravity Urine 1.026 (1.000-1.030); Urobilinogen Urine Negative (Negative); pH Urine 7.5 (4.5-7.5)
[2018-07-26 22:32] LABS: Amphetamines+Metham, Urine Neg (Neg); Barbiturates, Urine Neg (Neg); Benzodiazepine, Urine Neg (Neg); Cocaine, Urine Neg (Neg); MDMA (Ecstacy), Urine Neg (Neg); Methadone, Urine Neg (Neg); Opiate, Urine Neg (Neg); Phencyclidine, Urine Neg (Neg)
[2018-07-26 22:33] LABS: RBC Urine Automated >30 /hpf (0-4)
[2018-07-27] MEDS: ACETAMINOPHEN 325 MG TAB PO PRN ×2 (01:07→11:48)
[2018-07-27 06:32] LABS: BUN Creatinine Ratio 19.3 (10-20); Calcium 8.2 mg/dl (8.5-10.1); Creatinine Clr Calc Pharmacy 135.4 ml/min; Est GFR (African American) 131.4; Est GFR (Non-African American) 113.4; Potassium 3.4 mmol/L (3.5-5.1)
[2018-07-27] MEDS: FLUOXETINE HCL 10 MG CAP PO SCH (07:58)
[2018-07-27] MEDS: NICOTINE 14 MG/24 HR PATCH TD SCH (07:58)
[2018-07-27] MEDS: NYSTATIN POWDER 15GM BTL EXT SCH ×3 (07:59→20:15)
[2018-07-27] MEDS: DIVALPROEX DELAY RELEASE 500 MG TAB PO SCH (07:59)
[2018-07-27] MEDS: cloNIDine HCl 0.1 MG TAB PO SCH ×2 (08:07→18:33)
[2018-07-27] MEDS ORDERED: LACTULOSE SYRUP 30 GM/45 ML UDP PO STA (09:30)
[2018-07-27] MEDS ORDERED: POTASSIUM CHLORIDE 10 MEQ TABCR PO STA (10:45)
--- NOTE | 2018-07-27 16:12 | Neurology Progress Note ---
Date of Service July 27, 2018 Assessment & Plan (1) Recurrent seizures: 1. continue Depakote 500 mg BID which she has been taking for years will decrease to 250 mg am and 500 mg pm for now 2. agree with lactulose for elevated ammonia level which is caused by the Depakote- continue 3. she will need to establish care in [facility] with her neurologist for change to another antiseizure medication 4. 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 repeat depakote level in 10 days along with ammonia level 6. EEG with no seizure activity 7. possible drug interaction with new psych medications follow up with PCP and neurology as outpatient in [facility] will sign off for now will be available for any questions concerns. Ok to discharge once medically stable Supervising Physician Co-Signing Physician Notes I have seen and discussed above patient with Dr Jose Guadalupe Baker, neurology I have seen hCerise today, reviewed her status, discussed the case with Aurelia Garcia and her attending physician Dr. Rosenbaum and have recommended the above plan which is currently in place i.e. reduce the Depakote to a total of 750 mg/day, continue the lactulose, and to repeat both Depakote and lactulose and ammonia levels in about 10 days She will be returning to the [facility] when a bed is available. Neurology is going to sign off at present but will be happy to take a look at her again should further seizure activity or other issues emerge Jose Guadalupe Baker MD Subjective Cherise is a 23 year old female being treated at the [facility] inpatient psychiatric facility for the past several weeks. She has a history of seizure disorder and takes Depakote. She states she had several absent seizures accompanied by lethargy. Her valproic acid level is actually on the high side of normal. Head CT scan reveals a 1.3 cm encephalomalacia area in the left cerebellum that appears to be old. She is currently lethargic, she is easily arousable and conversant and oriented x3. She state she started having seizure in her teens and has never been on anything other than Depakote 500 mg BID. she is from [facility] and has a ride back home once she is cleared. She states she was outside smoking a cigarette and has several episode of staring. She is on numerous psychiatric medications and at the [facility] because of depression but states she is not suicidal. She is more awake today during exam. She was started on alot of new psych medication which may be interfering with depakote level. denies CP, SOB, abdominal pain, one sided weakness numbness tingling, N, V, fever chills night sweats, denies biting tongue or incontinence Physical Exam Physical Exam: gen: alert NAD. answer questions appropriately lungs CTA CV RRR moves all ext spontaneously Results & Data Vital Signs (Past 12 Hours) Vital Signs Temp Pulse Pulse Resp BP BP Pulse Ox 07/27/18 15:23 36.6 C 88 19 108/76 91 07/27/18 12:08 36.5 C 72 22 116/72 97 07/27/18 08:06 100/71 07/27/18 07:34 68 07/27/18 07:15 36.5 C 65 16 84/54 L 95 Laboratory Results Abnormal lab results 07/26/18 07/27/18 07/27/18 Range/Units 21:49 05:29 05:29 Potassium 3.4 L (3.5-5.1) mmol/L Chloride 111 H (98-107) mmol/L Calcium 8.2 L (8.5-10.1) mg/dl Ammonia 67.0 H (11-32) umol/L Urine Appearance Cloudy A (Clear) Urine Ketones 1+ H (Negative) Urine Blood 3+ H (Negative) Urine WBC (Auto) 5-10 H (0-5) /hpf Urine RBC (Auto) >30 H (0-4) /hpf U Epithel Cells (Auto) >30 H (0-5) /lpf Valproic Acid (50-100) mcg/ml 07/27/18 Range/Units 05:29 Potassium (3.5-5.1) mmol/L Chloride (98-107) mmol/L Calcium (8.5-10.1) mg/dl Ammonia (11-32) umol/L Urine Appearance (Clear) Urine Ketones (Negative) Urine Blood (Negative) Urine WBC (Auto) (0-5) /hpf Urine RBC (Auto) (0-4) /hpf U Epithel Cells (Auto) (0-5) /lpf Valproic Acid 110 H (50-100) mcg/ml Diagnostic Findings no new imaging
--- NOTE | 2018-07-27 19:56 | Hospitalist Progress Note ---
Date of Service July 27, 2018 Assessment & Plan (1) Seizure disorder: report of frequent seizures at the [facility]. no seizures since admission. EEG w/o focal seizure. 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 depakote level >100 -- I had initially held the depakote but neurology recommended resuming it albeit at lower dose of 250mg AM, 500mg HS. repeat level today slightly improved but still >100. Depakote will need to be changed to another anti-epileptic as outpatient due to significant hyperammonemia. this will be deferred to her outpatient neurologist in [place]. appreciate neurology consult and recs. (2) Hepatic encephalopathy: Markedly improved clinically and biochemically. Repeat level am. Cont lactulose 15gm daily. 2nd to depakote use. (3) Depression: continue all prior psych meds. once medically cleared can return to the [facility] - he she needs ongoing psych care. I have asked our psychiatry team to see in consult. (4) Altered mental state: resolved. 2nd to hepatic encephalopathy. 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 defer MRI to neurology if necessary. (7) Candidal intertrigo: nystatin powder TID (8) Weakness of right lower extremity: MRI lumbar spine r/o herniated disc, etc If negative then consider MRI brain b12, tsh wnl (9) DVT prophylaxis: lovenox [place] will obtain PT consult - has been in bed for several days, RLE weakness, etc Subjective patient feels much better today. she is much more awake and not so sleepy. she reports that at the [facility] - where she had been for nearly 3 weeks - her depakote was increased. she stated that "pretty much all I did at the [facility] was sleep." she usually is not like this back home in [facility]. she also mentions that they were talking about d/c from the [facility]. these conversations happened just before admission to [facility]. c/o right leg weakness and numbness - latter is over right calf. symptoms started sometime while at the [facility] but she also recalls a fall with injury back home in [place]. she saw the local ER there and was told she had "something wrong with my back." she did not have MRI scan. Review of Systems Constitutional: no fever Respiratory: no cough and no dyspnea Cardiovascular: no chest pain Gastrointestinal: no abdominal pain, no nausea and no vomiting Physical Exam Constitutional: + obese; no acute distress and no altered mental status ENMT: external ear and nose normal, oropharynx normal Respiratory: normal respiratory effort, lungs clear to auscultation Cardiovascular: Rate/Rhythm: regular rate and regular rhythm Heart Sounds: normal S1 and normal S2; no murmur Vessels: posterior tibial pulses present and dorsalis pedis pulses present; no JVD Extremities: no edema Gastrointestinal (Abdomen): normal bowel sounds, soft, nontender, no hepatosplenomegaly Neurologic: Motor/Sensory: + asterixis (nearly resolved) mild decrease sensation RLE just below knee (mainly on calf); mild decrease motor strength RLE - dorsiflexion/plantarflexion right foot and also right hip flexion?? Psychiatric: A+Ox3, euthymic affect Results & Data Vital Signs (Past 12 Hours) Vital Signs Temp Pulse Pulse Resp BP Pulse Ox 07/27/18 19:30 36.7 C 64 17 97/68 L 97 07/27/18 16:00 64 07/27/18 15:23 36.6 C 88 19 108/76 91 07/27/18 12:08 36.5 C 72 22 116/72 97 07/27/18 08:06 100/71 Laboratory Results Laboratory Results - last 24 hr 07/26/18 07/26/18 07/27/18 21:49 21:49 05:29 Sodium Potassium Chloride Carbon Dioxide Anion Gap BUN Creatinine Est Cr Clr Drug Dosing Est GFR ( Amer) Est GFR (Non-Af Amer) BUN/Creatinine Ratio Glucose Calcium Ammonia 67.0 H Urine Color Yellow Urine Appearance Cloudy A Urine pH 7.5 Ur Specific [place] 1.026 Urine Protein Negative Urine Glucose (UA) Negative Urine Ketones 1+ H Urine Blood 3+ H Urine Nitrite Negative Urine Bilirubin Negative Urine Urobilinogen Negative Ur Leukocyte Esterase Negative Urine WBC (Auto) 5-10 H Urine RBC (Auto) >30 H U Hyaline Cast (Auto) 1-5 U Epithel Cells (Auto) >30 H Urine Bacteria (Auto) Negative Urine Yeast Not Reportable Urine Opiates Screen Neg Ur Methadone, Qual Neg Urine Barbiturates Neg Valproic Acid Ur Phencyclidine (PCP) Neg U Amphetamin/Meth Scrn Neg MDMA (Ecstasy) Screen Neg U Benzodiazepines Scrn Neg Ur Cocaine Metabolite Neg U Marijuana (THC) Screen Neg 07/27/18 07/27/18 05:29 05:29 Sodium 143 Potassium 3.4 L Chloride 111 H Carbon Dioxide 27 Anion Gap 5.0 BUN 14 Creatinine 0.74 Est Cr Clr Drug Dosing 135.4 Est GFR ( Amer) 131.4 Est GFR (Non-Af Amer) 113.4 BUN/Creatinine Ratio 19.3 Glucose 71 Calcium 8.2 L Ammonia Urine Color Urine Appearance Urine pH Ur Specific [place] Urine Protein Urine Glucose (UA) Urine Ketones Urine Blood Urine Nitrite Urine Bilirubin Urine Urobilinogen Ur Leukocyte Esterase Urine WBC (Auto) Urine RBC (Auto) U Hyaline Cast (Auto) U Epithel Cells (Auto) Urine Bacteria (Auto) Urine Yeast Urine Opiates Screen Ur Methadone, Qual Urine Barbiturates Valproic Acid 110 H Ur Phencyclidine (PCP) U Amphetamin/Meth Scrn MDMA (Ecstasy) Screen U Benzodiazepines Scrn Ur Cocaine Metabolite U Marijuana (THC) Screen (1) Depression Depression Type: unspecified Qualified Code(s): F32.9 - Major depressive disorder, single episode, unspecified (2) Altered mental state Altered mental status type: somnolence Qualified Code(s): R40.0 - Somnolence
[2018-07-27] MEDS: DIVALPROEX EXTENDED RELEASE 500 MG TAB PO SCH (20:15)
[2018-07-27] MEDS ORDERED: DIVALPROEX EXTENDED RELEASE 500 MG TAB PO ONE (20:16)
[2018-07-27] MEDS: ARIPiprazole 10 MG TAB PO SCH (20:16)
[2018-07-27] MEDS: TRAZODONE HCL 100 MG TAB PO SCH (20:16)
--- NOTE | 2018-07-28 00:03 | Magnetic Resonance Report ---
MRI OF THE LUMBAR SPINE WITHOUT CONTRAST CLINICAL HISTORY: RLE distal paresthesias/weakness. COMPARISON STUDY: No previous studies for comparison. TECHNIQUE: Utilizing a 1.5 Piper magnet and dedicated coil, multiplanar, multiecho imaging of the [facility] spine was performed without IV contrast. FINDINGS: For purposes of numbering on this exam, the L5-S1 disc space is assigned to axial image 23 of 25. The re is a transitional vertebra at the lumbosacral junction which is designated as L5 on this exam. The left aspect of L5 is hemisacralized. Alignment of the lumbar spine is anatomic. There are multiple S chmorl's nodes. There is no intracanalicular mass or fluid collection. There is prominent epidural fa t within the lower lumbar and sacral canal. Exam is mildly compromised by motion artifact. Paraverteb ral soft tissues are unremarkable. There is no acute fracture. There is no suspicious marrow replacem ent. L1-2: There is a small central disc protrusion. The central canal and neural foramen are patent. L2-3: The central canal and neural foramen are patent. L3-4: The central canal and neural foramen are patent. There is mild facet arthrosis. L4-5: There is minimal disc bulge. There is facet arthrosis. The central canal and neural foramen are patent. L5-S1: The central canal and neural foramen are patent. IMPRESSION: 1. Mild multilevel degenerative disc disease and facet arthrosis within the lumbar spine. Small centr al disc protrusion at L1-L2. Patent central canal and neural foramen. 2. No lumbar spine fracture. 3. Transitional vertebra at the lumbosacral junction which is designated as L5 for purposes of number ing on this exam. Please see above numbering scheme. Electronically signed by: Que Urias M.D. 07/28/2018 12:02 AM
[2018-07-28 06:45] LABS: BUN Creatinine Ratio 15.5 (10-20); Calcium 8.2 mg/dl (8.5-10.1); Creatinine Clr Calc Pharmacy 144.6 ml/min; Est GFR (African American) 141.2; Est GFR (Non-African American) 121.8; Potassium 3.4 mmol/L (3.5-5.1)
[2018-07-28 07:35] LABS: INR 1.1 (0.9-1.1); Partial Thromboplastin Ratio 1.2; Partial Thromboplastin Time 31.6 Seconds (21.0-31.0); Prothrombin Time 11.6 Seconds (9.0-12.0)
[2018-07-28] MEDS: FLUOXETINE HCL 10 MG CAP PO SCH (08:46)
[2018-07-28] MEDS: ENOXAPARIN INJ 40 MG/0.4 ML SYR SQ SCH (08:46)
[2018-07-28] MEDS: NYSTATIN POWDER 15GM BTL EXT SCH ×3 (08:47→19:58)
[2018-07-28] MEDS: NICOTINE 14 MG/24 HR PATCH TD SCH (08:47)
[2018-07-28] MEDS ORDERED: LACTULOSE SYRUP 10 GM/15 ML BTL 473 ML PO SCH (09:00)
[2018-07-28] MEDS ORDERED: DIVALPROEX DELAY RELEASE 250 MG TABEC PO SCH (09:00)
--- NOTE | 2018-07-28 10:16 | Psychiatric Consultation ---
Date of Consultation July 28, 2018 Impression / Recommendations (1) Bipolar disorder: Cherise is a 23 year old female with a PMH of PTSD, Bipolar disorder, ADHD and seizure disorder who was admitted to [facility] due to seizure activity. She had been hospitalized at the [facility] due to suicidal ideation for about a month, and psychiatry consult was requested before she is discharged back to the [facility]. [facility] did not send any psychiatric records, so we do not have the psychiatric evaluation nor any of the progress notes from the past 3-1/2 weeks and do not know what her treatment there consisted of. She states that medications were changed, but does not know any of the details. However, she reports her symptoms are stabilizing on her current psychiatric medications, so would not recommend any changes at this time. Once medically cleared, she can return to the [facility] for ongoing psychiatric care. Please contact the psychiatric team for any further recommendations. I discussed this case with Dr. Silver and coordinated the management plan with her. Present on Admission?: Yes Psych History Chief Complaint "I have been having seizures which have resolved". History of Present Illness Yaima is a 23 year old female with a PMH of Bipolar disorder, ADHD, PTSD and seizure disorder that presented to [facility] due to recurrent seizures when she was at the [facility] psychiatric facility. She is planning on being discharged back to the [facility] therefore psychiatry was asked to evaluate the patient prior to returning there. The patient notes that a few months ago she moved into a [facility] in [place] due to the fact that her mothers house was deemed to be too dirty to live in and therefore her gearcase assembler "forced" her to move into the m[facility]. Since being at the [facility] the patients notes that she had become more depressed. She said her mood was very low, she was sleeping a lot, she felt hopeless and had little energy to do anything. She says that at the [facility] the supervisors were giving her a hard time about folding her clothes and doing chores around the home. The patient notes that she did not get along with them. She went to see her therapist one day when she was living at the [facility] and the patient noted to her therapist that she was having thoughts of wanting to kill herself but did not have any plan. Cherise was then immediately sent to [facility] whom then transferred the patient to the [facility] for further pscyhiatric care. Cherise has now been at the [facility] for approximately one month and she notes that since they have been "messing around my medications" she has had more seizures. Due to an increase frequency of atypical seizures she was sent to [facility] for further evaluation. While here at [facility] she has not had any further seizure activity. She has had her depakote dose decrease due to elevated levels and high ammonia levels with a plan for her to follow up with her neurologist in [facility]. While in the hospital the patient currently denies any depressive symptoms, panic symptoms, insomnia, manic symptoms, hallucinations or SI. She notes she does feel tired but has no other psychiatric complaints at this time. She hopes to eventually go home and live with her mom as she currently has new kittens in her moms house. With regards to her past psychiatric history she has been hospitalized approximately 6 times in the past. She has been an inpatient at [facility] and [place] psych facilities. She has a history of overdose twice when she was in [place]. She sees a Psychiatrist at the [facility] in [facility] and she sees a therapist three times a week. However since being at the [facility] she has not been going to these appointments. The patient notes she was diagnosed with bipolar disorder approximately 6 years ago. She says every couple months she has periods of increased energy where she has a decreased need to sleep, loves talking to people and watches tv for >3 days at a time. With regards to her family history of pscyhiatric problems she notes that her mother has a history of bipolar disorder and her grandmother has a history of depression. She notes that at the age of 11 her father of lung cancer and her sister committed suicide by hanging herself. She grew up in [place], [place]. She completed [employer] and her favorite subject was bizsol. She occasional drinks alcohol, she smokes 1 pack of cigarettes and she denies any hx of drug abuse. She has currently being trying to get disability insurance but says she has been denied this due to her mental health problems. She had a job at the [employer] last year but was unable to keep the job because she "just couldn't keep up with the counting". Currently she is unsure of what her living situation is going to be, but she hopes to be able to go back and live at home with her mother and kittens. Allergies Allergy/AdvReac Type Severity Reaction Status Date / Time bee venom protein (honey bee) Allergy Severe Difficulty Verified 07/25/18 15:56 Breathing PER PT blueberry Allergy Severe Difficulty Verified 07/25/18 15:56 Breathing PER PT codeine Allergy Severe Difficulty Verified 07/25/18 15:56 Breathing PER PT latex Allergy Severe Difficulty Verified 07/25/18 15:56 Breathing PER PT morphine Allergy Severe Difficulty Verified 07/25/18 15:56 Breathing PER PT sulfamethoxazole Allergy Severe Difficulty Verified 07/25/18 15:56 [From Bactrim] BreathinPER PT trimethoprim [From Bactrim] Allergy Severe Difficulty Verified 07/25/18 15:56 BreathinPER PT Bleach (Sodium Hypochlorite) Allergy Unknown NO Verified 07/25/18 15:56 REACTION ON BRAVO LIST Home Medications Home Medications Medication Instructions Recorded Confirmed Type Mylanta 30 ml PO QID PRN 07/25/18 07/25/18 History aripiprazole [Abilify] 20 mg PO HS 07/25/18 07/25/18 History ileluqk-atlrmdcmismhe-mkidcyyf 2 tab PO Q6H PRN 07/25/18 07/25/18 History [Excedrin Extra Strength] clonidine HCl 0.05 mg PO BID17 07/25/18 07/25/18 History divalproex 500 mg PO BID 07/25/18 07/25/18 History fluoxetine 30 mg PO QAM 07/25/18 07/25/18 History hydroxyzine HCl 50 mg PO QID PRN 07/25/18 07/25/18 History lorazepam [Ativan] 2 mg PO TID 07/25/18 07/25/18 History magnesium hydroxide [Milk of 30 ml PO DAILY PRN 07/25/18 07/25/18 History Magnesia] nicotine 1 patch TRANSDERMAL DAILY 07/25/18 07/25/18 History trazodone 100 mg PO HS 07/25/18 07/25/18 History Personal History Beliefs That Will Affect Care: None Patient History Medical History DVT prophylaxis Depression (Chronic) Seizure disorder (Chronic) Family History Other No significant family history Social History Preferred Language: Bahamian Communication Ability: Effective Supervisor Operations Required: No Beliefs That Will Affect Care: None marital status: Single Current Living Situation: Family and Significant Other current occupational status: unemployed Other Information That Helps Us Care for You: No Feels Safe at Home: Yes Safety Concerns: Feels Safe At This Time Smoking Status: Current every day smoker Tobacco Type: cigarettes Cigarettes Per Day: 2-3 cigarettes/day Do You Dip or Chew Tobacco: No Second Hand Exposure: Yes Tobacco Cessation Education Requested by Patient: No Hx Alcohol Use: No Hx Substance Use: No Physical Exam Mental Examination: Appearance: Disheveled Eye Contact: Maintains Eye Contact Motor Behavior: Unremarkable Speech: Normal Mood: Calm Affect: Sad Thought Process: Intact Thought Content: Intact Hallucinations: None Insight: Good Judgement: Good Vital Signs (Past 24 Hours): Last Vital Signs Temp 36.5 C 07/28/18 07:10 Pulse 59 L 07/28/18 07:23 Resp 15 07/28/18 07:10 BP 97/66 L 07/28/18 07:10 Pulse Ox 97 07/28/18 07:10 Review of Systems All systems reviewed & are unremarkable except as noted in HPI & below Results & Data Medications Administered Acetaminophen (Tylenol) 650 mg PO Q4H PRN PRN Reason: Pain or Fever Stop: 08/24/18 19:45 Last Admin: 07/27/18 11:48 Dose: 650 mg Documented by: [id number] Admin: 07/27/18 01:07 Dose: 650 mg Documented by: [id number] Admin: 07/26/18 08:02 Dose: 650 mg Documented by: [id number] Aripiprazole (Abilify) 20 mg PO HS [facility] Stop: 08/24/18 20:59 Last Admin: 07/27/18 20:16 Dose: 20 mg Documented by: [id number] Admin: 07/26/18 21:55 Dose: 20 mg Documented by: [id number] Admin: 07/25/18 20:43 Dose: 20 mg Documented by: [id number] Clonidine HCl (Catapres) 0.05 mg PO BID17 [facility] Stop: 08/25/18 08:59 Last Admin: 07/27/18 18:33 Dose: Not Given Documented by: [id number] Admin: 07/27/18 08:07 Dose: Not Given Documented by: [id number] Admin: 07/26/18 17:11 Dose: Not Given Documented by: [id number] Admin: 07/26/18 07:55 Dose: 0.05 mg Documented by: [id number] Divalproex Sodium (Depakote Delay Release) 250 mg PO DAILY [facility] Stop: 08/27/18 08:59 Last Admin: 07/28/18 08:46 Dose: 250 mg Documented by: [id number] Divalproex Sodium (Depakote Extended Release) 500 mg PO [facility] Stop: 08/26/18 20:59 Last Admin: 07/27/18 20:15 Dose: 500 mg Documented by: [id number] Enoxaparin Sodium (Lovenox) 40 mg SQ [facility] Stop: 08/27/18 08:59 Last Admin: 07/28/18 08:46 Dose: 40 mg Documented by: [id number] Fluox[facility] ([facility]zac) [facility] Stop: 08/25/18 08:59 Last Admin: 07/28/18 08:46 Dose: 30 mg Documented by: [id number] Admin: 07/27/18 07:58 Dose: 30 mg Documented by: [id number] Admin: 07/26/18 07:54 Dose: 30 mg Documented by: [id number] Lactulose (Chronulac) 15 gm PO [facility] Stop: 08/27/18 08:59 Last Admin: 07/28/18 08:46 Dose: 15 gm Documented by: [id number] Miscellaneous (Remove Nicoderm Patch) 1 ea N/A [facility] Stop: 08/24/18 20:59 Last Admin: 07/27/18 20:17 Dose: 1 ea Documented by: [id number] Admin: 07/26/18 21:02 Dose: 1 ea Documented by: [id number] Admin: 07/25/18 20:44 Dose: Not Given Documented by: [id number] Nicotine (Nicoderm Cq) 14 mg TD DAILY [facility] Stop: 08/25/18 08:59 Last Admin: 07/28/18 08:47 Dose: 14 mg Documented by: [id number] Admin: 07/27/18 07:58 Dose: 14 mg Documented by: [id number] Admin: 07/26/18 07:55 Dose: 14 mg Documented by: [id number] Nystatin (Mycostatin) 1 appln EXT TID [facility] Stop: 08/25/18 11:34 Last Admin: 07/28/18 08:47 Dose: 1 appln Documented by: [id number] Admin: 07/27/18 20:15 Dose: 1 appln Documented by: [id number] Admin: 07/27/18 14:16 Dose: 1 appln Documented by: [id number] Admin: 07/27/18 07:59 Dose: 1 appln Documented by: [id number] Admin: 07/26/18 21:02 Dose: 1 appln Documented by: [id number] Admin: 07/26/18 14:00 Dose: 1 appln Documented by: [id number] Admin: 07/26/18 13:52 Dose: Not Given Documented by: [id number] Trazodone HCl (Desyrel) 100 mg PO HS [facility] Stop: 08/24/18 20:59 Last Admin: 07/27/18 20:16 Dose: 100 mg Documented by: [id number] Admin: 07/26/18 21:54 Dose: Not Given Documented by: [id number] Admin: 07/25/18 20:44 Dose: 100 mg Documented by: [id number]
[2018-07-28] MEDS: POTASSIUM CHLORIDE 20 MEQ TABCR PO SCH ×3 (10:34→19:58)
[2018-07-28] MEDS ORDERED: LACTULOSE SYRUP 30 GM/45 ML UDP PO STA (16:00)
--- NOTE | 2018-07-28 17:18 | Magnetic Resonance Report ---
MRI OF THE BRAIN COMBO CLINICAL HISTORY: Seizure. Right lower extremity weakness. Reported history of traumatic brain injury . COMPARISON STUDY: CT of the brain dated 07/25/2018. TECHNIQUE: MRI of the brain was performed utilizing various T1 and T2-weighted sequences in the axial , sagittal, and coronal planes. Contrast-enhanced sequences were acquired following the administratio n of 9.5 cc of Gadavist. The examination is performed using the seizure protocol. FINDINGS: Brain parenchyma: There is a 12 mm ovoid focus of CSF signal intensity identified within the cerebell um on axial image #9. There are least 2 subcentimeter tiny foci of T2 signal abnormality within the p eriventricular white matter. This is of doubtful significance as an isolated finding. There is no hem orrhage or mass effect. There is no restricted diffusion to suggest acute ischemia. No enhancing mass lesion is identified on the postcontrast images. Frazier-white matter differentiation is preserved. No extra-axial fluid collection is seen. There is mild cerebellar tonsillar ectopia. The cerebellar tons ils project 6 mm below the foramen magnum. The hippocampi are normal and symmetric. Ventricles, sulci, and cisterns: Normal in configuration. Pituitary and sella: Unremarkable. Intracranial vasculature: Normal flow voids are maintained at the skull base. Orbits: The bony orbits are grossly intact. Orbital contents are normal in appearance. Sinuses and mastoids: There is a 2.6 cm retention cyst in the left maxillary antrum. The remaining pa ranasal sinuses are clear. The mastoid air cells are well pneumatized. Calvarium: Unremarkable. Cervical cord: Partially visualized cervical spinal cord is normal in morphology and signal intensity . IMPRESSION: 1. There is no acute intracranial abnormality. 2. There is a 12 mm ovoid focus of CSF signal intensity identified within the left cerebellum. This l ikely represents encephalomalacia from a remote insult, or less likely a prominent perivascular space . Correlation with any prior outside imaging studies will be required to assess for chronicity. 3. There is mild cerebellar tonsillar ectopia. Electronically signed by: Ruslan Nance M.D. 07/28/2018 5:16 PM
[2018-07-28] MEDS: TRAZODONE HCL 100 MG TAB PO SCH (19:57)
[2018-07-28] MEDS: DIVALPROEX EXTENDED RELEASE 500 MG TAB PO SCH (19:58)
[2018-07-28] MEDS: ARIPiprazole 10 MG TAB PO SCH (19:58)
--- NOTE | 2018-07-28 20:18 | Hospitalist Progress Note ---
Date of Service July 28, 2018 Assessment & Plan (1) Seizure disorder: report of frequent seizures at the [facility]. no seizures since admission. EEG w/o focal seizure. 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 depakote level >100 -- depakote dose initially reduced to 250mg AM, 500mg pm. Due to persistently high level will stop AM dose; only give PM dose. Depakote will need to be changed to another anti-epileptic, however, (as outpatient) due to significant hyperammonemia. this will be deferred to her outpatient neurologist in [place]. appreciate neurology consult and recs. (2) Hepatic encephalopathy: level worse today, and symptomatic. increase lactulose to 30 BID. titrate 2-3 BMs/day. 2nd to depakote usage - see seizure d/o above. (3) Depression: continue all prior psych meds. once medically cleared can return to the [facility] - she needs ongoing psych care. I have asked our psychiatry team to see in consult and they feel she indeed should return to the [facility]. (4) Altered mental state: 2nd to hepatic encephalopathy. 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 having RLE weakness - MRI of l-spine without focal pathology. due to ongoing weakness will obtain MRI brain - r/o other pathology and confirm presence of cerebellar encephalomalacia. (7) Candidal intertrigo: nystatin powder TID (8) Weakness of right lower extremity: MRI lumbar spine w/o herniated disc, etc b12, tsh wnl MRI brain - r/o POMOLOGY TEACHER process if negative -- Jose's paralysis due to recent seizure?? (9) DVT prophylaxis: lovenox SC PT consult appreciated Subjective pt states she is very tired again today. appetite ok, however. right leg weakness improving - "I always have this for a few days after a seizure." asks to use walker w/ ambulation. denies any new neuro symptoms. no suicidal ideation. no abd pain. no BMs today yet. Review of Systems Constitutional: + fatigue; no fever, no chills and no anorexia Respiratory: no cough and no dyspnea Cardiovascular: no chest pain Gastrointestinal: no abdominal pain, no nausea and no vomiting Physical Exam Constitutional: + obese; no acute distress very sleepy today - does awaken and follow commands ENMT: external ear and nose normal, oropharynx normal Respiratory: normal respiratory effort, lungs clear to auscultation Cardiovascular: Rate/Rhythm: regular rate and regular rhythm Heart Sounds: normal S1 and normal S2; no murmur Vessels: posterior tibial pulses present and dorsalis pedis pulses present; no JVD Extremities: no edema Gastrointestinal (Abdomen): normal bowel sounds, soft, nontender, no hepatosplenomegaly Neurologic: + focal motor deficit (right hip flexion + right foot dorsiflexion/plantarflexion - 4/5 strength) Motor/Sensory: + asterixis Psychiatric: Orientation: oriented x 3 (but quite sleepy) Results & Data Vital Signs (Past 12 Hours) Vital Signs Temp Pulse Pulse Resp BP BP Pulse Ox 07/28/18 19:30 36.3 C L 80 18 121/86 98 07/28/18 17:09 70 07/28/18 15:12 36.7 C 75 16 105/71 97 07/28/18 11:51 36.4 C L 67 14 84/59 L 98 Laboratory Results Laboratory Results - last 24 hr 07/28/18 07/28/18 07/28/18 06:01 06:01 06:50 PT 11.6 INR 1.1 APTT 31.6 H PTT Ratio 1.2 Sodium 143 Potassium 3.4 L Chloride 109 H Carbon Dioxide 29 Anion Gap 5.0 BUN 11 Creatinine 0.69 Est Cr Clr Drug Dosing 144.6 Est GFR ( Amer) 141.2 Est GFR (Non-Af Amer) 121.8 BUN/Creatinine Ratio 15.5 Glucose 77 Calcium 8.2 L Magnesium 2.0 Ammonia 150.0 H (1) Depression Depression Type: unspecified Qualified Code(s): F32.9 - Major depressive disorder, single episode, unspecified (2) Altered mental state Altered mental status type: somnolence Qualified Code(s): R40.0 - Somnolence
[2018-07-29] MEDS: NYSTATIN POWDER 15GM BTL EXT SCH ×2 (08:01→14:30)
[2018-07-29] MEDS: POTASSIUM CHLORIDE 20 MEQ TABCR PO SCH ×2 (08:01→14:30)
[2018-07-29] MEDS: ENOXAPARIN INJ 40 MG/0.4 ML SYR SQ SCH (08:01)
[2018-07-29] MEDS: FLUOXETINE HCL 10 MG CAP PO SCH (08:02)
[2018-07-29] MEDS: NICOTINE 14 MG/24 HR PATCH TD SCH (08:02)
[2018-07-29 08:54] LABS: BUN Creatinine Ratio 16.1 (10-20); Calcium 8.9 mg/dl (8.5-10.1); Creatinine Clr Calc Pharmacy 129.9 ml/min; Est GFR (African American) 125.3; Est GFR (Non-African American) 108.1; Potassium 3.6 mmol/L (3.5-5.1)
[2018-07-29] MEDS ORDERED: LACTULOSE SYRUP 30 GM/45 ML UDP PO SCH (09:00)
[2018-07-30] MEDS ORDERED: LACTULOSE SYRUP 30 GM/45 ML UDP PO SCH (17:00)
--- NOTE | 2018-08-05 22:09 | Discharge Summary ---
Date of Service date of admission - July 25, 2018 date of discharge - July 29, 2018 Admission HPI Per Admitting Provider 23 year-old female who has been treated at the [facility] facility for the past several weeks. She has a history of seizure disorder and takes Depakote. Apparently she had several absence type seizures today accompanied by lethargy. She was sent to the ED for evaluation. Her valproic acid level is actually on the high side of normal. Head CT scan reveals a 1.3 cm encephalomalacia area in the left cerebellum that appears to be old. She will be admitted for further evaluation and treatment. Neurology will be consulted and EEG ordered. She will be given Ativan intravenously as needed to control any tonic clonic type seizure activity. She is stable at the time of my examination and feeling better. Although she remains somewhat lethargic, she is easily arousable and conversant and oriented x3. Principal Diagnosis hepatic encephalopathy 2nd to chronic depakote use Discharge Exam Constitutional + obese; no acute distress ENMT external ear and nose normal, oropharynx normal Respiratory normal respiratory effort, lungs clear to auscultation Cardiovascular Rate/Rhythm: regular rate and regular rhythm Heart Sounds: normal S1 and normal S2; no murmur Vessels: posterior tibial pulses present and dorsalis pedis pulses present; no JVD Extremities: no edema Gastrointestinal (Abdomen) normal bowel sounds, soft, nontender, no hepatosplenomegaly Skin resolving rash on upper trunk Neurologic awake; no focal motor deficits Motor/Sensory: + asterixis (resolved) Psychiatric A+Ox3, euthymic affect Discharge Data Allergies Allergy/AdvReac Type Severity Reaction Status Date / Time bee venom protein (honey bee) Allergy Severe Difficulty Verified 07/25/18 15:56 Breathing PER PT blueberry Allergy Severe Difficulty Verified 07/25/18 15:56 Breathing PER PT codeine Allergy Severe Difficulty Verified 07/25/18 15:56 Breathing PER PT latex Allergy Severe Difficulty Verified 07/25/18 15:56 Breathing PER PT morphine Allergy Severe Difficulty Verified 07/25/18 15:56 Breathing PER PT sulfamethoxazole Allergy Severe Difficulty Verified 07/25/18 15:56 [From Bactrim] BreathinPER PT trimethoprim [From Bactrim] Allergy Severe Difficulty Verified 07/25/18 15:56 BreathinPER PT Bleach (Sodium Hypochlorite) Allergy Unknown NO Verified 06/02/19 15:56 REACTION ON ALMODOVAR LIST Consultations 1. [facility] 2. Psychiatry 3. PT Ordered Studies 1. CT head - IMPRESSION: 1. There is no acute intracranial abnormality. 2. There is a 1.3 cm round focus of encephalomalacia in the left cerebellum, likely related to a remote insult. 2. MRI brain - IMPRESSION: 1. There is no acute intracranial abnormality. 2. There is a 12 mm ovoid focus of CSF signal intensity identified within the left cerebellum. This likely represents encephalomalacia from a remote insult, or less likely a prominent perivascular space. Correlation with any prior outside imaging studies will be required to assess for chronicity. 3. There is mild cerebellar tonsillar ectopi. 3. MRI lumbar spine - IMPRESSION: 1. Mild multilevel degenerative disc disease and facet arthrosis within the lumbar spine. Small central disc protrusion at L1-L2. Patent central canal and n eural foramen. 2. No lumbar spine fracture. 3. Transitional vertebra at the lumbosacral junction which is designated as L5 for purposes of numbering on this exam. Please see above numbering scheme. Hospital Course (1) Seizure disorder: There was a report of frequent seizures at the [facility]. There were no seizures since admission witnessed by any staff member. EEG without focal seizure focus. 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 Patient's depakote level was >100 -- depakote dose initially reduced to 250mg AM, 500mg pm. A repeat depakote level was still >100. Due to persistently high level her AM dose was STOPPED. Only her PM dose will be continued. HOWEVER, in the long run her depakote will need to be changed to another anti- epileptic as an outpatient due to significant hyperammonemia (see below). This will be deferred to her outpatient neurologist in [place], [place]. She was seen by [facility]rology who provided hicks recommendations for her seizure disorder. (2) Hepatic encephalopathy: The patient was markedly lethargic early on in her stay. Her ammonia level was found to be >100. She was initiated on lactulose for such. Lethargy and asterixis gradually improved with lactulose therapy. It was felt her elevated ammonia level was due to depakote use. She does not have liver disease. The patient commented that her depakote had been increased while stayin at [facility] and this likely played a big role in her elevated ammonia levels AND her elevated depakote levels. She was advised to stay on twice daily lactulose and titrate for 2-3 BMs/day. Again [facility] Neurology advised that her depakote be weaned off as an outpatient due to the ammonia issue. This will be deferred to her neurologist in [place]. (3) Depression: She was seen in consult by psychiatry who advised that she return to the [facility] for ongoing psychiatric treatment. Thus, she was discharged from [facility] to the [facility]. All prior psychiatric meds were continued while at [facility]. (4) Altered mental state: 2nd to hepatic encephalopathy. Resolved. 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 Patient had RLE weakness much of her stay - MRI of l-spine without focal pathology. MRI brain also without an explanation for the weakness. 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 (7) Candidal intertrigo: nystatin powder TID for 7 additional days. (8) Weakness of right lower extremity: MRI lumbar spine w/o herniated disc, etc. B12, TSH wnl. MRI brain without acute COLOR TECHNICIAN process. It is possible the transient RLE weaknesss was due to Jose's paralysis from her recent seizure. Either way the RLE weakness improved with time. Total Time Total Time Spent Total Time Spent (In Minutes): 40 Total Time Includes: Examination of the Patient, Discharge Planning, Medication Reconciliation and Communication With Other Providers Discharge Plan Discharge Items Patient Disposition: Transfer Behavioral Health Fac Reason For Visit: suspected seizures Discharge Diagnosis: 1. hepatic encephalopathy (elevated ammonia levels) - resolved. 2. suspected seizures. 3. right leg weakness - resolved. Discharge Goals: Diagnostic testing and Therapeutic intervention Activity: Resume your previous activity Non-emergency contact: Primary Care Provider, Neurologist and Psychiatrist Call non-emergency contact if: you have any medication questions, your symptoms worsen and your temperature is above 100.5 Follow-up/Referrals: Laurel Almodovar [Primary Care Provider] - Diet: Regular Addtl Provider Instructions: Recommendations from Sixto Siuta - hospitalist - 1. LOWER depakote dose to 500mg at bedtime only. The patient had 2 elevated depakote levels over 100 in the setting of twice daily dosing. 2. The depakote caused elevated ammonia levels leading to hepatic encephalopathy (lethargy,fatigue). The highest ammonia level was 150. It was 39 on day of discharge. She should take the lactulose once or twice daily EVERY DAY. Titrate to maintain 2-3 bowel movements each day. 3. The depakote will need to be WEANED OFF by her neurologist in [place]. She then will need to be started on a new anti-epileptic medication at that time. Do not raise the depakote dose beyond 500mg once daily. Again, recommend that her neurologist in [place] manage the weaning of the depakote. 4. nystatin powder three times daily for 7 days to chest wall for yeast rash. 5. potassium 20meq daily for 3 days only starting 07/30/18. 6. STOP clonidine due to low blood pressure. 7. STOP ativan. 8. Right leg weakness -- MRI of lumbar spine did not show pathology. MRI of head showed OLD left cerebellar injury from head trauma as child but no stroke or mass/tumor. The right leg weakness may have been "Jose's paralysis" from her recent seizure. The weakness has improved. however, PT recommending use of walker at the [facility] for ambulation. Follow-up -- 1. see Neurology in [place] upon discharge from [facility] 2. see PCP in [facility] upon discharge from the [facility] Other recommendations -- 1. check depakote level in 3-4 days 2. only recheck ammonia level if flapping tremor (asterixis) or severe lethargy/fatigue/sleepiness occurs 3. check potassium level in 3-4 days Prescriptions: New nystatin [Nystop] 100,000 unit/gram Powder 1 applic EXT TID Qty: 45 RF: 0 lactulose 20 gram/30 mL Solution 30 ml PO BID17 Qty: 1800 RF: 1 Continued nicotine 14 mg/24 hr Patch 24 Hour 1 patch TRANSDERMAL DAILY RF: 0 fluoxetine 10 mg Tablet 30 mg PO QAM RF: 0 hydroxyzine HCl 50 mg Tablet 50 mg PO QID PRN (Reason: Anxiety) RF: 0 magnesium hydroxide [Milk of Magnesia] 400 mg/5 mL Suspension 30 ml PO DAILY PRN (Reason: Constipation) RF: 0 trazodone 100 mg Tablet 100 mg PO HS RF: 0 Excedrin Extra Strength 250-250-65 mg Tablet 2 tab PO Q6H PRN (Reason: Headache) RF: 0 aripiprazole [Abilify] 20 mg Tablet 20 mg PO HS RF: 0 Mylanta 30 ml PO QID PRN (Reason: GASTRIC DISTRESS) RF: 0 Changed divalproex 500 mg Tablet,Delayed Release (Dr/Ec) 500 mg PO HS Qty: 30 RF: 2 Discontinued clonidine HCl 0.1 mg Tablet 0.05 mg PO BID17 RF: 0 lorazepam [Ativan] 2 mg Tablet 2 mg PO TID RF: 0 Stand-Alone Forms: [facility] Discharge Orders: Discharge Order (Routine); Ordered 07/29/18 Ordered By: Sixto Rosenbaum Admission Data Admit Date/Time: 07/25/18 18:57 Attending Provider: Sixto Rosenbaum Admit Provider: Adan Kinsey Primary Care Provider: Laurel Almodovar Other Providers: Adan Kinsey ; Jose Guadalupe Baker ; Missy Silver Service: Telemetry Other Interventions: Discharge Summary Assessment (RN) Last Done: 07/29/18 14:52 Pending Studies at Discharge: No DC Date/Time DO NOT enter until pt leaves facility: 07/29/18 16:59
== END 2018-07-29 16:59 | DRG 101 ==
LOC: ED 14:58 → SUATTDRO 18:57 → 2S 18:57